=== PATIENT | male | born 1980 | race Asian ===

== ENCOUNTER 2019-10-31 10:44 | Observation (INO) | payer OTHER ==
[~2019-10-31] VITALS: Ht 170.2 cm; Wt 77.1 kg
[2019-10-31] MEDS ORDERED: ALPR1 PO (11:42)
[2019-10-31 12:13] LABS: BASOPHILS ABSOLUTE AUTO 0.01 K/mm3 (0.00-0.23); BASOPHILS PERCENT AUTO 0 % (0-2); EOSINOPHILS ABSOLUTE AUTO 0.01 K/mm3 (0.00-0.68); EOSINOPHILS PERCENT AUTO 0 % (0-6); Hematocrit 36.4 % (37.0-53.0); Hemoglobin 11.2 g/dL (13.5-17.5); IMMATURE GRAN ABSOLUTE AUTO 0.01 K/mm3 (0.00-0.10); IMMATURE GRAN PERCENT AUTO 0 % (0-1); LYMPHOCYTES ABSOLUTE AUTO 1.28 K/mm3 (0.84-5.20); LYMPHOCYTES PERCENT AUTO 23 % (21-46); MONOCYTES ABSOLUTE AUTO 0.41 K/mm3 (0.16-1.47); MONOCYTES PERCENT AUTO 7 % (4-13); Mean Corpuscular HGB 21.6 pg (26.0-34.0); Mean Corpuscular HGB Conc 30.8 g/dL (31.5-36.5); Mean Corpuscular Volume 70 fL (80-100); Mean Platelet Volume 8.9 fL (9.1-12.4); NEUTROPHILS ABSOLUTE AUTO 3.88 K/mm3 (1.96-9.15); NEUTROPHILS PERCENT AUTO 69 % (41-73); Platelet Count 560 K/mm3 (150-400); RDW Standard Deviation 52.9 fL (35.1-46.3); Red Blood Cell Count 5.18 M/mm3 (4.30-5.90)
[2019-10-31 12:36] LABS: Alanine Aminotransfer (ALT/SGP 21 U/L (12-78); Albumin, Blood 4.1 g/dL (3.4-5.0); Albumin/Globulin Ratio 0.8 (0.8-1.8); Alk Phos 85 U/L (50-136); Anion Gap 7 mmol/L (6-16); Aspartate Aminotrans (AST/SGOT 18 U/L (12-37); Bilirubin, Total 0.4 mg/dL (0.1-1.0); Blood Urea Nitrogen 17 mg/dL (8-24); Bun/Creatinine Ratio 25.3 (12.0-20.0); CO2, Blood 22 mmol/L (21-32); Calcium, Blood 9.7 mg/dL (8.5-10.1); Chloride, Blood 108 mmol/L (98-108); Creatinine, Blood 0.67 mg/dL (0.60-1.20); Ethanol (Alcohol), Blood, Med <3 mg/dL; Globulin, Blood 5.3 g/dL (2.2-4.0); Glomerular Filtration Rate >60 (60-); Glucose, Blood 114 mg/dL (70-99); Potassium, Blood 3.9 mmol/L (3.5-5.5); Salicylate 3.7 mg/dL (2.8-20.0); Sodium, Blood 137 mmol/L (136-145); Total Protein, Blood 9.4 g/dL (6.4-8.2)
[2019-10-31 12:38] LABS: Free Thyroxine 1.31 ng/dL (0.70-1.60); Thyroid Stimulating Hormone 0.127 uIU/mL (0.360-4.800)
[2019-10-31 12:43] LABS: Acetaminophen, Random <2.0 ug/mL (10.0-30.0)
[2019-10-31 13:01] LABS: Source, Urine Clean Catch
[2019-10-31 13:03] LABS: Blood, Urine Neg (Neg); Glucose Qualitative, Urine Neg (Neg); Ketones, Urine 4+ (Neg); Leukocyte Esterase, Urine 1+ (Neg); Nitrite, Urine Neg (Neg); Protein, Urine 2+ (Neg); Urobilinogen, Urine 2+ (Normal)
[2019-10-31 13:19] LABS: U Amphetamine Screen Not Detected; U Barbituate Screen Not Detected; U Benzodiazapine Screen DETECTED; U Buprenorphine Screen Not Detected; U Cannabinoids Screen DETECTED; U Cocaine Screen Not Detected; U Methadone Screen Not Detected; U Methamphetamine Screen DETECTED; U Opiates Screen Not Detected; U Oxycodone Screen Not Detected; U Phencyclidine Screen Not Detected; U Propoxyphene Screen Not Detected
[2019-10-31 13:21] LABS: Bilirubin, Urine 1+ (Neg)
[2019-10-31 13:22] LABS: Appearance, Urine Hazy (Clear); Color, Urine Yellow (P-Yellow)
[2019-10-31 13:24] LABS: Bacteria Rare /hpf; Red Blood Cells, Urine Not Seen /hpf (0-2); Squamous Epithelial Cells Few /hpf (Few); White Blood Cells, Urine 0-2 /hpf (0-5)
[2019-10-31 13:25] LABS: Mucus Mod (0-Heavy)
[2019-11-02] MEDS ORDERED: Ativan1 MG SL (15:08)
[2019-11-02] MEDS ORDERED: QUET25 PO (15:08)
== END 2019-11-02 15:40 | disposition home or self-care (01) ==
LOC: ER 10:44 → EOR 10:45
PROVIDERS: ADMIT Emergency Medicine
DX: F32.3 Major depressive disorder, single episode, severe with psychotic features (principal); F41.9 Anxiety disorder, unspecified; Z79.899 Other long term (current) drug therapy; F15.10 Other stimulant abuse, uncomplicated
CPT/HCPCS: 80053; 81001; 84439; 84443; 85025; 87086; 99285; G0378; G0480; Q0163; Q3014